=== PATIENT | female | born 1970 | race Caucasian/White ===

== ENCOUNTER 2019-12-19 23:28 | Observation (INO) | payer SELFPAY ==
[~2019-12-19] VITALS: Ht 160 cm; Wt 90.5 kg
[~2019-12-19 23:28] MED LIST: ATENOLOL50 MG OR; ATENOLOL50 MG PO; BENAZEPRIL10 MG OR; BENAZEPRIL20 M1 PO; BENAZEPRIL40 M1 PO; CATAPRES0.1 MG OR; CIPRO500 MG OR; LISINOPRIL20 MG PO; LORTAB 5 OR; LORTAB 7.57.5 MG PO; METOPROL TAR25 MG PO; MOTRIN400 MG OR; NAPROSYN500 MG OR; SERTRALINE50 MG OR; ULTRAM50 MG OR
--- NOTE | 2019-12-19 23:45 | NUR ---
AMBULATED TO ROOM WITH STEADY GAIT.
[2019-12-20 00:42] LABS: HEMATOCRIT 42.1 % (37.0-47.0); HEMOGLOBIN 14.6 g/dl (12.0-16.0); IMMATURE GRANULOCYTES 0.5 % (0.0-5.0); MEAN CELL VOLUME 91.5 fL CALC (80.0-100.0); MEAN CORPUSCULAR HGB 31.7 pG CALC (26.0-32.0); MEAN CORPUSCULAR HGB CONC 34.7 g/dL CAL (32.0-36.0); NEUT# 3.99 thou/uL (2.00-7.15); RED BLOOD COUNT 4.6 mill/uL (4.20-5.60); RED CELL DISTRI WIDTH 11.3 % (11.5-15.5)
[2019-12-20 00:58] LABS: URINE BILIRUBIN - DIPSTICK NEGATIVE (NEGATIVE); URINE BLOOD DIPSTICK TRACE-INTACT (NEGATIVE); URINE COLOR YELLOW; URINE GLUCOSE - DIPSTICK >=1000 mg/dL (NEGATIVE); URINE KETONE TRACE mg/dL (NEGATIVE); URINE LEUK ESTERASE NEGATIVE (NEGATIVE); URINE NITRITE - DIPSTICK NEGATIVE (Negative); URINE PROTEIN - DIPSTICK NEGATIVE (NEG-TRACE); URINE SPECIFIC GRAVITY 1.015; URINE UROBILINOGEN - DIPSTICK 0.2 E.U./dL (0.2)
[2019-12-20 01:00] LABS: ALBUMIN 4.4 g/dL (3.2-5.0); ANION GAP 14 (6-22 (CALC)); BUN 12 mg/dL (7-17); BUN/CREATININE RATIO 26 (12-20 (CALC)); CARBON DIOXIDE 27 mmol/l (22-30); CHLORIDE 97 mmol/l (95-108); CREATININE 0.5 mg/dL (0.5-1.0); ETHYL ALCOHOL 0 mg/dl (0-30); GFR > 60 ML/MIN (>=60 (CALC)); GFR FOR AFR.AMER. > 60 ML/MIN (>=60 (CALC)); POTASSIUM 3.9 mmol/l (3.5-5.1); SGOT/AST 34 u/l (14-36); SODIUM 135 mmol/l (137-146); TOTAL PROTEIN 7.6 g/dL (6.3-8.2)
[2019-12-20 01:02] LABS: ALKALINE PHOSPHATASE 95 u/l (38-126); BILIRUBIN, TOTAL 0.7 mg/dL (0.0-1.4)
[2019-12-20 01:12] LABS: MYOGLOBIN 32 ng/mL (0 - 62)
--- NOTE | 2019-12-20 01:15 | NUR ---
RESTING QUIETLY. IV INFUSING.
--- NOTE | 2019-12-20 03:15 | NUR ---
AWAITING TEST RESULTS. VSS.
--- NOTE | 2019-12-20 04:25 | NUR ---
Admission Note Report Given to: ASHLYN LEON Transported by: X Wheelchair Stretcher Transported with: Nurse X Transporter X Patent IV O2 X Bottle Capper Location: ICU X [facility]
[2019-12-20 04:30] VITALS: BP 144/87
--- NOTE | 2019-12-20 04:30 | NUR ---
PATIENT ARRIVES VIA WHEELCHAIR ACCOMPANIED BY ER NURSE ANGELIQUE. SHAUNNA IS ON RA, NO SOB NOTED, O2 SAT 97%. DENIES CHEST PAIN, REPORTS HER VISION IS BLURRY, DENIES DIZZINESS. WHEN I ASK QUESTIONS TO CHARLES, SHE AT TIMES TAKES A MOMENT TO ANSWER THE QUESTIONS, HER SPEECH IS SLURRED. NIH WAS PERFORMED, SHE DRIFTS ALL EXTREMITIES, SHE IS ABLE TO FOLLOW ALL COMMANDS, NO DROOP NOTED, SHE IS ALERT AND ORIENTED X4. EQUAL MODERATE GENERAL OFFICE ASSISTANT NOTED BILATERALLY. NO COORDINATION PROBLEMS NOTED, HORIZONTAL GAZE NORMAL. READS SENTENCES PROPERLY. RAC 20 GIV INTACT, FLUSHES PROPERLY. POC DISCUSSED, PATIENT UNDERSTANDS AND AGREES, PT DOES ASK IF SHE WILL BE DISCHARGED TODAY. SELF REPOSITIONS. LEFT BREAST FOLD RASH NOTED AND CHARTED. CALL LIGHT WITHIN REACH.
--- NOTE | 2019-12-20 06:15 | NUR ---
PATIENT AWAKENS EASILY WHEN SPOKEN TO. REPORTS SHE IS TIRED. NO OTHER COMPLAINTS OR NEEDS AT THIS TIME. CALL LIGHT WITHIN REACH.
[2019-12-20 07:53] VITALS: BP 131/83
--- NOTE | 2019-12-20 08:08 | NUR ---
ASSESSMENT DONE PT IS A&O X3. PT DENIES PAIN AT THIS TIME. IVF INFUSING WELL. TELE IN PLACE. RESPS EVEN AND UNLABORED. PT DENIES ANY OTHER NEEDS AT THIS TIME. CALL LIGHT IN REACH.-
[2019-12-20] MEDS ORDERED: ADLT ASA LOW81 MG PO (10:04)
[2019-12-20] MEDS ORDERED: LISINOPRIL20 M1 PO (10:04)
[2019-12-20] MEDS ORDERED: METFORMIN HYD1000 MG PO (10:04)
[2019-12-20 10:25] VITALS: BP 149/102
[2019-12-20 12:00] VITALS: BP 150/88
--- NOTE | 2019-12-20 12:18 | NUR ---
PT IS WAITING FOR HER RIDE TO BE DC. PT DENIES ANY OTHER NEEDS AT THIS TIME. CALL LIGHT IN REACH.-
--- NOTE | 2019-12-20 12:41 | NUR ---
Discharge instructions given. Patient verbalizes understanding of same. Discharged in stable condition via Wheelchair to Home with staff. All belongings sent with pt.
== END 2019-12-20 12:41 | disposition home or self-care (01) | DRG 639 ==
LOC: ED 23:28 → ED-I 12-20 03:29 → ED 12-20 03:49 → MS2 12-20 03:50
PROVIDERS: Emergency Medicine; ADMIT Internal Medicine; ATTEND Internal Medicine
PROC: 3E0234Z Introduction of Serum, Toxoid and Vaccine into Muscle, Percutaneous Approach (ICD-10-PCS; principal; 2019-12-20)
DX: E11.65 Type 2 diabetes mellitus with hyperglycemia (principal); I10 Essential (primary) hypertension; T38.3X6A Underdosing of insulin and oral hypoglycemic [antidiabetic] drugs, initial encounter; T46.5X6A Underdosing of other antihypertensive drugs, initial encounter; E78.5 Hyperlipidemia, unspecified; E66.01 Morbid (severe) obesity due to excess calories; Z91.128 Patient's intentional underdosing of medication regimen for other reason; Z91.11 Patient's noncompliance with dietary regimen; Z23 Encounter for immunization; Z20.828 Contact with and (suspected) exposure to other viral communicable diseases
CPT/HCPCS: G0378; Q9967

== ENCOUNTER 2020-03-19 08:03 | Emergency (ER) | payer SELFPAY ==
[~2020-03-19] VITALS: Ht 160 cm; Wt 100.0 kg
[~2020-03-19 08:03] MED LIST changes: +ADLT ASA LOW81 MG PO; +LISINOPRIL20 M1 PO; +METFORMIN HYD1000 MG PO
[2020-03-19] MEDS ORDERED: HYDROCO/APAP1 TA9 PO (08:26)
[2020-03-19] MEDS ORDERED: CLINDAMYCIN300 M1 PO (08:26)
[2020-03-19 08:40] VITALS: BP 167/90
== END 2020-03-19 08:40 | disposition home or self-care (01) | DRG 159 ==
LOC: ED 08:03
DX: K04.7 Periapical abscess without sinus (principal); K02.9 Dental caries, unspecified; I10 Essential (primary) hypertension; E11.9 Type 2 diabetes mellitus without complications; F17.210 Nicotine dependence, cigarettes, uncomplicated; Z79.84 Long term (current) use of oral hypoglycemic drugs

== ENCOUNTER 2021-02-10 11:25 | Observation (INO) | payer SELFPAY ==
[~2021-02-10] VITALS: Ht 162.6 cm; Wt 84.2 kg
[~2021-02-10 11:25] MED LIST changes: +CLINDAMYCIN300 M1 PO; +HYDROCO/APAP1 TA9 PO
--- NOTE | 2021-02-10 11:37 | NUR ---
PT AMB TO ROOM
--- NOTE | 2021-02-10 12:36 | NUR ---
AREA CLEANSED WITH SOAP AND WATER, PATTED DRY. PT TOLERATED WELL.
[2021-02-10 13:01] LABS: ALKALINE PHOSPHATASE 87 u/l (38-126); ANION GAP 14 (6-22 (CALC)); BUN 14 mg/dL (7-17); BUN/CREATININE RATIO 37 (12-20 (CALC)); CARBON DIOXIDE 26 mmol/l (22-30); CHLORIDE 99 mmol/l (95-108); CREATININE 0.4 mg/dL (0.5-1.0); GFR > 60 ML/MIN (>=60 (CALC)); GFR FOR AFR.AMER. > 60 ML/MIN (>=60 (CALC)); POTASSIUM 4.3 mmol/l (3.5-5.1); SGOT/AST 24 u/l (14-36); SODIUM 135 mmol/l (137-146); TOTAL PROTEIN 7.5 g/dL (6.3-8.2)
[2021-02-10 13:02] LABS: HEMATOCRIT 43.7 % (37.0-47.0); HEMOGLOBIN 15.1 g/dl (12.0-16.0); IMMATURE GRANULOCYTES 0.1 % (0.0-5.0); MEAN CELL VOLUME 94.4 fL CALC (80.0-100.0); MEAN CORPUSCULAR HGB 32.6 pG CALC (26.0-32.0); MEAN CORPUSCULAR HGB CONC 34.6 g/dL CAL (32.0-36.0); NEUT# 3.96 thou/uL (2.00-7.15); RED BLOOD COUNT 4.63 mill/uL (4.20-5.60); RED CELL DISTRI WIDTH 11.3 % (11.5-15.5)
[2021-02-10 13:09] LABS: BILIRUBIN, TOTAL 1.1 mg/dL (0.0-1.4)
--- NOTE | 2021-02-10 14:40 | NUR ---
MD AT BEDSIDE TO DISCUSS RESULTS AND POC.
--- NOTE | 2021-02-10 15:32 | NUR ---
PT AMBULATED TO BATHROOM WITH STEADY GAIT.
--- NOTE | 2021-02-10 16:31 | NUR ---
REPORT CALLED TO ADAM GOLDBERG.
--- NOTE | 2021-02-10 16:46 | NUR ---
TO MED SURG VIA WHEELCHAIR.
[2021-02-10 16:57] VITALS: BP 135/72
[2021-02-10 19:03] VITALS: BP 148/87
--- NOTE | 2021-02-10 20:15 | NUR ---
PHYSICAL ASSESMENT COMPLETE. PT CURRENTLY DENIES PAIN OR DISCOMFORT. SCHEDULED MEDICATIONS AND PRN MEDICATION ADMINISTERED, SEE E-MAR. PT DENIES ANY NEEDS AT THIS TIME. PLAN OF CARE REVIEWED, PT DENIES QUESTIONS, VERBALIZES UNDERSTANDING. ITEMS WITHIN REACH, BED LOCKED IN LOW POSITION W/ BEDRAILS UP X2. CALL GRIGSBY WITHIN REACH, AGREES TO CALL PRN.
--- NOTE | 2021-02-11 04:13 | NUR ---
PT RESTING IN BED, NO SIGNS OF DISTRESS NOTED, RESP EVEN AND UNLABORED. PT VOICES NO NEEDS OR COMPLAINTS AT THIS TIME. CALL LIGHT IN REACH, CONTINUE TO MONITOR.
[2021-02-11 04:41] VITALS: BP 160/85
[2021-02-11 05:01] LABS: HEMATOCRIT 41.3 % (37.0-47.0); HEMOGLOBIN 14.3 g/dl (12.0-16.0); MEAN CELL VOLUME 95.8 fL CALC (80.0-100.0); MEAN CORPUSCULAR HGB 33.2 pG CALC (26.0-32.0); MEAN CORPUSCULAR HGB CONC 34.6 g/dL CAL (32.0-36.0); RED BLOOD COUNT 4.31 mill/uL (4.20-5.60); RED CELL DISTRI WIDTH 11.4 % (11.5-15.5)
[2021-02-11 05:20] LABS: ANION GAP 10 (6-22 (CALC)); BUN 9 mg/dL (7-17); BUN/CREATININE RATIO 25 (12-20 (CALC)); CARBON DIOXIDE 26 mmol/l (22-30); CHLORIDE 103 mmol/l (95-108); CREATININE 0.3 mg/dL (0.5-1.0); GFR > 60 ML/MIN (>=60 (CALC)); GFR FOR AFR.AMER. > 60 ML/MIN (>=60 (CALC)); MAGNESIUM 1.6 mg/dL (1.6-2.3); POTASSIUM 4.3 mmol/l (3.5-5.1); SODIUM 135 mmol/l (137-146)
[2021-02-11 07:30] VITALS: BP 156/98
--- NOTE | 2021-02-11 07:30 | NUR ---
PATIENT RESTING IN BED AT THIS TIME. LINE DRIVER DONE AT THIS TIME SEE INTERVENITONS. PATIENT NPO AT THIS TIME JACKIE HAS LIGHT REDDNESS TO INTER R THIGH AT THIS TIME. PATIENT STATES THE REDDNESS IS NOT RED WHEN SHE CAME IN AND IT FEELS BETTER. THERE IS A HARDEN AREA AND IS WARM TO TOUCH., SIDERAILS ARE UP CALL LIGHT WITHIN REACH. PATIENT DENIES ANY PAIN AT THIS TIME.
--- NOTE | 2021-02-11 11:53 | NUR ---
PATIENT RESTING IN BED AT THIS TIME. DR. PADILLA IN TO SEE PATIENT AT THIS TIME SIDERAILS ARE UP X 2 CALL LIGHT WITHIN REACH. TELE MONITOR ON AND BEING MONITORED BY ED.
[2021-02-11] MEDS ORDERED: LISINOPRIL10 MG PO (11:56)
[2021-02-11] MEDS ORDERED: KEFLEX500 MG PO (11:57)
[2021-02-11 12:00] VITALS: BP 165/94
--- NOTE | 2021-02-11 12:49 | NUR ---
PATIENT D/C AT THIS TIME. IV REMOVED TIP INTACT TELE MONITOR REMOVED ED NOTIFIED (ASHLYN SERRANO). PATIENT VERBALIZES UNDERSTANDING OF D/C INSTRUCTIONS AT THIS TIME.
--- NOTE | 2021-02-11 13:43 | NUR ---
Discharge instructions given. Patient verbalizes understanding of same. Discharged in stable condition via Wheelchair to Home with spouse. All belongings sent with pt. PATIENT VERBALIZES UNDERSTANDING OF D/C.
== END 2021-02-11 13:43 | disposition home or self-care (01) | DRG 603 ==
LOC: ED 11:25 → ED-I 14:54 → ED 15:11 → MS2 15:12
PROVIDERS: Emergency Medicine; ADMIT Hospitalist; ATTEND Hospitalist
DX: L02.214 Cutaneous abscess of groin (principal); L03.115 Cellulitis of right lower limb; B37.2 Candidiasis of skin and nail; I10 Essential (primary) hypertension; E11.9 Type 2 diabetes mellitus without complications; E78.5 Hyperlipidemia, unspecified; E66.01 Morbid (severe) obesity due to excess calories; Z68.29 Body mass index [BMI] 29.0-29.9, adult; Z79.84 Long term (current) use of oral hypoglycemic drugs; Z20.822 Contact with and (suspected) exposure to COVID-19
CPT/HCPCS: G0378; J3370

== ENCOUNTER 2021-02-12 09:52 | Emergency (ER) | payer SELFPAY ==
[~2021-02-12] VITALS: Ht 162.6 cm; Wt 82.0 kg
[~2021-02-12 09:52] MED LIST changes: +KEFLEX500 MG PO; +LISINOPRIL10 MG PO
[2021-02-12 12:02] VITALS: BP 165/118
== END 2021-02-12 12:10 | disposition home or self-care (01) | DRG 603 ==
LOC: ED 09:52
PROC: 0H9HXZZ Drainage of Right Upper Leg Skin, External Approach (ICD-10-PCS; principal; 2021-02-12)
DX: L02.415 Cutaneous abscess of right lower limb (principal); L03.115 Cellulitis of right lower limb; Q87.40 Marfan syndrome, unspecified; E11.9 Type 2 diabetes mellitus without complications; I10 Essential (primary) hypertension; B37.2 Candidiasis of skin and nail; F17.200 Nicotine dependence, unspecified, uncomplicated; Z79.84 Long term (current) use of oral hypoglycemic drugs

== ENCOUNTER 2021-02-14 09:12 | Emergency (ER) | payer SELFPAY ==
[~2021-02-14] VITALS: Ht 162.6 cm; Wt 76.0 kg
[2021-02-14] MEDS ORDERED: BACTRIM DS1 TAB PO (09:34)
[2021-02-14 09:41] VITALS: BP 180/95
== END 2021-02-14 09:50 | disposition home or self-care (01) | DRG 951 ==
LOC: ED 09:12
DX: Z48.01 Encounter for change or removal of surgical wound dressing (principal); E11.9 Type 2 diabetes mellitus without complications; F17.200 Nicotine dependence, unspecified, uncomplicated; Z79.84 Long term (current) use of oral hypoglycemic drugs

== ENCOUNTER 2021-02-16 16:14 | Emergency (ER) | payer SELFPAY ==
[~2021-02-16] VITALS: Ht 162.6 cm; Wt 81.6 kg
[~2021-02-16 16:14] MED LIST changes: +BACTRIM DS1 TAB PO
[2021-02-16 17:56] VITALS: BP 129/94
== END 2021-02-16 17:56 | disposition home or self-care (01) | DRG 951 ==
LOC: ED 16:14
DX: Z48.01 Encounter for change or removal of surgical wound dressing (principal); Q87.40 Marfan syndrome, unspecified; I10 Essential (primary) hypertension; E11.9 Type 2 diabetes mellitus without complications; Z79.84 Long term (current) use of oral hypoglycemic drugs

== ENCOUNTER 2021-02-19 15:05 | Emergency (ER) | payer SELFPAY ==
[~2021-02-19] VITALS: Ht 162.6 cm; Wt 81.8 kg
[2021-02-19 15:45] VITALS: BP 183/98
== END 2021-02-19 15:55 | disposition home or self-care (01) | DRG 951 ==
LOC: ED 15:05
DX: Z48.01 Encounter for change or removal of surgical wound dressing (principal); Q87.40 Marfan syndrome, unspecified; E11.9 Type 2 diabetes mellitus without complications; I10 Essential (primary) hypertension; Z79.84 Long term (current) use of oral hypoglycemic drugs

== ENCOUNTER 2021-03-26 11:22 | Emergency (ER) | payer SELFPAY ==
[~2021-03-26] VITALS: Ht 162.6 cm; Wt 84.0 kg
[2021-03-26 14:31] VITALS: BP 155/112
== END 2021-03-26 14:40 | disposition home or self-care (01) | DRG 392 ==
LOC: ED 11:22
DX: K59.00 Constipation, unspecified (principal); Q87.40 Marfan syndrome, unspecified; I10 Essential (primary) hypertension; E11.9 Type 2 diabetes mellitus without complications; Z79.84 Long term (current) use of oral hypoglycemic drugs

== ENCOUNTER 2021-05-07 07:50 | Emergency (ER) | payer SELFPAY ==
[2021-05-07] VITALS (10 sets, daily range): BP systolic 159–192; BP diastolic 106–148
[~2021-05-07] VITALS: Ht 162.6 cm; Wt 88.0 kg
[2021-05-07] MEDS ORDERED: ASPIRIN81 MG PO (09:44)
[2021-05-07] MEDS ORDERED: LISINOPRIL10 MG PO ×2 (09:44→11:02)
[2021-05-07 09:49] LABS: HEMATOCRIT 44.1 % (37.0-47.0); HEMOGLOBIN 15.2 g/dl (12.0-16.0); MEAN CELL VOLUME 92.6 fL CALC (80.0-100.0); MEAN CORPUSCULAR HGB 31.9 pG CALC (26.0-32.0); MEAN CORPUSCULAR HGB CONC 34.5 g/dL CAL (32.0-36.0); NEUT# 3.39 thou/uL (2.00-7.15); RED BLOOD COUNT 4.76 mill/uL (4.20-5.60); RED CELL DISTRI WIDTH 11.4 % (11.5-15.5)
[2021-05-07 10:14] LABS: ALBUMIN 4.3 g/dL (3.2-5.0); ALKALINE PHOSPHATASE 83 u/l (38-126); ANION GAP 12 (6-22 (CALC)); BUN 11 mg/dL (7-17); BUN/CREATININE RATIO 28 (12-20 (CALC)); CARBON DIOXIDE 26 mmol/l (22-30); CHLORIDE 99 mmol/l (95-108); CREATININE 0.4 mg/dL (0.5-1.0); GFR > 60 ML/MIN (>=60 (CALC)); GFR FOR AFR.AMER. > 60 ML/MIN (>=60 (CALC)); POTASSIUM 3.9 mmol/l (3.5-5.1); SGOT/AST 25 u/l (14-36); SODIUM 133 mmol/l (137-146); TOTAL PROTEIN 8.2 g/dL (6.3-8.2)
[2021-05-07] MEDS ORDERED: KEFLEX500 MG PO (11:02)
[2021-05-07] MEDS ORDERED: DIFLUCAN150 MG PO (11:02)
== END 2021-05-07 12:15 | disposition home or self-care (01) | DRG 601 ==
LOC: ED 07:50
DX: N61.0 Mastitis without abscess (principal); E11.65 Type 2 diabetes mellitus with hyperglycemia; I10 Essential (primary) hypertension; Z79.84 Long term (current) use of oral hypoglycemic drugs

== ENCOUNTER 2021-11-01 08:16 | Emergency (ER) | payer SELFPAY ==
[~2021-11-01] VITALS: Ht 162.6 cm; Wt 77.7 kg
[~2021-11-01 08:16] MED LIST changes: +ASPIRIN81 MG PO; +DIFLUCAN150 MG PO
[2021-11-01 09:58] VITALS: BP 206/132
[2021-11-01] MEDS ORDERED: CEPHALEXIN500 M1 PO (10:10)
== END 2021-11-01 10:16 | disposition home or self-care (01) | DRG 603 ==
LOC: ED 08:16
PROC: 0H9GXZZ Drainage of Left Hand Skin, External Approach (ICD-10-PCS; principal; 2021-11-01)
DX: L03.012 Cellulitis of left finger (principal); Q87.40 Marfan syndrome, unspecified; I10 Essential (primary) hypertension; E11.9 Type 2 diabetes mellitus without complications; F17.210 Nicotine dependence, cigarettes, uncomplicated

== ENCOUNTER 2022-11-05 11:30 | Emergency (ER) | payer SELFPAY ==
[~2022-11-05] VITALS: Ht 162.6 cm; Wt 86.0 kg
[~2022-11-05 11:30] MED LIST changes: +CEPHALEXIN500 M1 PO
[2022-11-05] MEDS ORDERED: CEPHALEXIN500 MG PO (11:43)
[2022-11-05 12:05] VITALS: BP 171/109
== END 2022-11-05 12:00 | disposition home or self-care (01) | DRG 607 ==
LOC: ED 11:30
DX: L98.9 Disorder of the skin and subcutaneous tissue, unspecified (principal); I10 Essential (primary) hypertension; E11.9 Type 2 diabetes mellitus without complications; F17.200 Nicotine dependence, unspecified, uncomplicated; Z79.84 Long term (current) use of oral hypoglycemic drugs

== ENCOUNTER 2022-11-20 17:15 | Emergency (ER) | payer SELFPAY ==
[~2022-11-20] VITALS: Ht 167.6 cm; Wt 83.0 kg
[~2022-11-20 17:15] MED LIST changes: +CEPHALEXIN500 MG PO; +VIBRAMYCIN100 M2 PO
[2022-11-20 17:52] VITALS: BP 152/112
[2022-11-20 18:01] VITALS: BP 190/133
[2022-11-20 18:35] LABS: BASO% 0.5 % (0-3); EOS% 3.2 % (0-8); HEMATOCRIT 41.7 % (37.0-47.0); HEMOGLOBIN 14.2 g/dl (12.0-16.0); IMMATURE GRANULOCYTES 0.2 % (0.0-5.0); LYMPH% 31.5 % (15-41); MEAN CELL VOLUME 94.1 fL CALC (80.0-100.0); MEAN CORPUSCULAR HGB 32.1 pG CALC (26.0-32.0); MEAN CORPUSCULAR HGB CONC 34.1 g/dL CAL (32.0-36.0); MONO% 8.1 % (2-13); NEUT# 3.41 thou/uL (2.00-7.15); NEUT% 56.5 % (42-76); RED BLOOD COUNT 4.43 mill/uL (4.20-5.60); RED CELL DISTRI WIDTH 11.3 % (11.5-15.5)
[2022-11-20 18:59] LABS: ALBUMIN 4.1 g/dL (3.2-5.0); ALKALINE PHOSPHATASE 84 u/l (38-126); ANION GAP 14 (6-22 (CALC)); BILIRUBIN, TOTAL 0.7 mg/dL (0.02-1.3); BUN 24 mg/dL (7-17); BUN/CREATININE RATIO 31 (12-20 (CALC)); CARBON DIOXIDE 25 mmol/l (22-30); CHLORIDE 102 mmol/l (95-108); CREATININE 0.8 mg/dL (0.5-1.0); GFR FOR AFR.AMER. > 60 ML/MIN (>=60 (CALC)); GFR OTHER RACES > 60 ML/MIN (>=60 (CALC)); SGOT/AST 30 u/l (14-36); SODIUM 137 mmol/l (137-146); TOTAL PROTEIN 7.5 g/dL (6.3-8.2)
[2022-11-20] MEDS ORDERED: KEFLEX500 MG PO (20:53)
[2022-11-20 20:55] VITALS: BP 161/106
[2022-11-20 21:00] VITALS: BP 174/95
== END 2022-11-20 21:16 | disposition home or self-care (01) | DRG 607 ==
LOC: ED 17:15
PROVIDERS: Family Medicine
DX: L98.9 Disorder of the skin and subcutaneous tissue, unspecified (principal); L02.212 Cutaneous abscess of back [any part, except buttock and flank]; K76.0 Fatty (change of) liver, not elsewhere classified; I10 Essential (primary) hypertension; E11.9 Type 2 diabetes mellitus without complications; F17.210 Nicotine dependence, cigarettes, uncomplicated; Z79.84 Long term (current) use of oral hypoglycemic drugs
CPT/HCPCS: Q9967